=== PATIENT | male | born 1955 | race Caucasian/White ===

== ENCOUNTER 2018-01-02 09:30 | Day surgery (SDC) | payer OTHER ==
[2018-01-01 17:28] LABS: Absolute Lymphocytes (CBC) 2.8 K/uL (0.7-4.9); Absolute Monocytes 0.5 K/uL (0.1-1.3); Absolute Neutrophil 3.5 K/uL (1.8-8.0); Basophils % 0.8 % (0-1.3); Eosinophils % 3.2 % (0-4.4); MCH 32.4 pg (27.0-35.0); MCV 93.4 fL (80-100); MPV 10.1 fL (7.6-11.3); Monocytes % 7.7 % (3.3-12.3); RBC Red Blood Cell Count 4.71 M/uL (4.33-5.43)
[2018-01-01 17:29] LABS: Protime INR 0.98
[2018-01-01 17:37] LABS: Potassium 3.8 mmol/L (3.5-5.1)
[2018-01-02] MEDS ORDERED: NA CHLORIDE 0.9% 500 ML ONE (09:50)
[2018-01-02] MEDS ORDERED: FENTANYL CITR 100 MCG/2 ML ONE (11:32)
[2018-01-02] MEDS ORDERED: MIDAZOLAM HCL 2 MG/2 ML INJ ONE (11:32)
[2018-01-02] MEDS ORDERED: NA CHLORIDE 0.9% 0 ML ONE (11:32)
[2018-01-02] MEDS ORDERED: ATROPINE SULF 1 MG/10 ML SYR IV ONE (11:32)
[2018-01-02] MEDS ORDERED: HEPA 1000U/500MLS 1,000 UNIT/500 ML BAG IV ONE (11:33)
[2018-01-02] MEDS ORDERED: LIDOCAINE 1% MPF 2 ML AMPULE ONE (11:33)
--- NOTE | 2018-01-03 05:47 | OP ---
Surgeon: Chuy Marrero MD Barkeeper: Dodie Barrios. The patient will go home in 2 hours and see me in 2 weeks. Procedures: Left heart catheterization and selective coronary arteriogram. Indication: Abnormal stress test. Description Of Procedure: Mr. Lane is a 62-year-old patient of Dr. Lao. He was brought to the c ath lab as an outpatient, prepped and draped in the routine sterile fashion, given 2 mg of Versed for IV sedation. A 6-[place] sheath introduced in the right common femoral artery. Angio-Seal was used to close the case. A 6-[place] catheter was used to do the angiography. He was found to have normal coronaries, normal left main, normal circumflex, LAD, and RCA and no significant stenosis. Complications: None. Blood Loss: 5 cc. Final Diagnosis: Abnormal stress test, normal coronaries. Plan: Plan is for medical therapy. Total Conscious Sedation: 30 minutes. Nurse Midwife/Clinical Instructor: Jose Daniel Josue/NAV Voice ID: [id number] Report ID: [id number]
== END 2018-01-02 14:18 | disposition home or self-care (01) ==
LOC: CCL 09:30
PROC: B201YZZ Plain Radiography of Multiple Coronary Arteries using Other Contrast (ICD-10-PCS; principal; 2018-01-02)
DX: R94.39 Abnormal result of other cardiovascular function study (principal); I49.3 Ventricular premature depolarization; F17.210 Nicotine dependence, cigarettes, uncomplicated; Z82.49 Family history of ischemic heart disease and other diseases of the circulatory system
CPT/HCPCS: 36415; 80048; 85025; 85610; 85730; 93454; C1760; C1893; J0583; J2001; J2250; J3010